=== PATIENT | male | born 1960 | race Caucasian/White ===

== ENCOUNTER 2019-01-11 12:56 | Emergency (ER) | payer MEDICARE ==
[~2019-01-11] VITALS: Ht 177.8 cm; Wt 88.9 kg
[~2019-01-11 12:56] MED LIST: ALLO300T OR; AMBI10TA OR; ASPI325T5 PO; ASPI81TA83 OR; BISA10SU PR; CELE40TA OR; COLC0.6T OR; FLUT1SPR2; FOLI800T OR; HYDR25TA6 OR; LISI20TA5 OR; LOPR50TA OR; METF1000 PO; NASONEX; NITR0.4S SL; OXYC1TAB23 OR; PLAV75TA2 OR; PRAV20TA2 OR; PRIL20CA PO; XANA0.5T OR
[2019-01-11 13:55] LABS: VENOUS BASE EXCESS 1.8 (-2.0-2.0); VENOUS HCO3 28.8 MEQ/L (23.0-27.0); VENOUS O2 SATURATION 47.2 % (60.0-80.0); VENOUS PARTIAL PRESSURE CO2 53.6 mmHg (38.0-50.0); VENOUS PARTIAL PRESSURE O2 23.5 mmHg (30.0-50.0); VENOUS PH 7.348 UNITS (7.330-7.430); VENOUS STANDARD HCO3 24.5 MEQ/L; VENOUS TOTAL CO2 30.4 MEQ/L (24.0-28.0)
[2019-01-11 14:11] LABS: BASO % 0.4 % (0.0-1.0); EOS # 0.2 10^3/uL (0.0-0.5); EOS % 1.5 % (0.0-3.0); HEMATOCRIT 46.5 % (42.0-52.0); HEMOGLOBIN 15.9 g/dl (13.5-17.5); LYMPH # 2.1 10^3/uL (1.5-5.0); LYMPH % 20.1 % (24.0-44.0); MEAN CORPUSCULAR HEMOGLOBIN 31.5 pg (27.0-33.0); MEAN CORPUSCULAR HGB CONC 34.2 g/dl (32.0-36.5); MEAN CORPUSCULAR VOLUME 92.1 fl (80.0-96.0); MONO # 0.8 10^3/uL (0.0-0.8); MONO % 7.6 % (0.0-5.0); NEUTROPHILS # 7.2 10^3/uL (1.5-8.5); NEUTROPHILS % 70.2 % (36.0-66.0); PLATELET COUNT, AUTOMATED 352 10^3/uL (150-450); RED BLOOD COUNT 5.05 10^6/uL (4.30-6.10); WHITE BLOOD COUNT 10.3 10^3/uL (4.0-10.0)
--- NOTE | 2019-01-11 14:22 | REP ---
Clinical: Generalized abdominal pain. Technique: Upright view of the chest with supine and upright views of the abdomen and pelvis. Findings: Frontal upright view of the chest demonstrates no acute cardiopulmonary process or free air below the diaphragm to suspect pneumoperitoneum. Supine and upright views of the abdomen and pelvis demonstrate nonspecific bowel gas pattern without obstruction or perforation. No organomegaly. No abnormal calcifications. Skeletal structures normal for age. Impression: Nonspecific bowel gas pattern. Electronically Signed by Sukhwinder Loredo MD 01/11/2019 02:13 P
[2019-01-11 14:28] LABS: ALBUMIN 3.7 GM/DL (3.2-5.2); ALT/SGPT 13 U/L (12-78); BILIRUBIN,DIRECT 0.1 MG/DL (0.0-0.2); BILIRUBIN,TOTAL 0.5 MG/DL (0.2-1.0); BLOOD UREA NITROGEN 6 MG/DL (7-18); CALCIUM LEVEL 9.3 MG/DL (8.5-10.1); CARBON DIOXIDE LEVEL 29 MEQ/L (21-32); CHLORIDE LEVEL 106 MEQ/L (98-107); CK-MB VALUE MASS 5.4 NG/ML (<3.6); CPK CREATINE PHOSPHOKINASE 81 U/L (39-308); CREATININE FOR GFR 0.78 MG/DL (0.70-1.30); GLOMERULAR FILTRATION RATE > 60.0 (>56); GLUCOSE, FASTING 139 MG/DL (70-100); LIPASE 58 U/L (73-393); MB/CK RELATIVE INDEX 6.67 (< OR =4); POTASSIUM SERUM 4.3 MEQ/L (3.5-5.1); SODIUM LEVEL 138 MEQ/L (136-145); TOTAL PROTEIN 6.7 GM/DL (6.4-8.2); TROPONIN I < 0.02 NG/ML (< 0.10)
[2019-01-11] MEDS ORDERED: KETOROLAC 30 MG/ML VIAL (J1885) IV ONE (15:30)
[2019-01-11] MEDS: GASTROGRAFIN SOLUTION 30ML PO SCH ×2 (15:38→16:21)
[2019-01-11] MEDS ORDERED: ACETAMINOPHEN TAB 650MG DOSE (2X325MG) PO ONE (16:00)
[2019-01-11] MEDS ORDERED: ISOVUE-370 76% 100ML VIAL (Q9967) As Ordered ONE (16:48)
--- NOTE | 2019-01-11 17:27 | REPVR ---
PROCEDURE INFORMATION: Exam: CT Abdomen And Pelvis With Contrast Exam date and time: 01/11/2019 5:01 PM Clinical history: 58 years old, male; Other: Wt loss; Additional info: 60lb weight loss, lower abdominal pain TECHNIQUE: Imaging protocol: Computed tomography of the abdomen and pelvis with intravenous contrast. Radiation optimization: All CT scans at this facility use at least one of these dose optimization techniques: automated exposure control; mA and/or kV adjustment per patient size (includes targeted exams where dose is matched to clinical indication); or iterative reconstruction. Contrast material: ISOVUE 370; Contrast volume: 100 ml; Contrast route: IV; COMPARISON: CT ABD PELVIS WITH CONTRAST 07/29/2012 11:05 AM FINDINGS: Lungs: Small tree in bud subpleural opacity right middle lobe. Small focus of peripheral airway disease left lower lobe. Minimal scarring left lower lobe. Liver: There is a diffuse decrease in hepatic parenchymal density, consistent with fatty infiltration. Small perfusional abnormality left lobe liver, likely transient. Gallbladder and bile ducts: Normal. No calcified stones. No ductal dilation. Pancreas: There is diffuse pancreatic atrophy. Spleen: Top normal splenic size. Adrenals: There is bilateral adrenal hyperplasia. There is a focal hypodense mass in the right adrenal gland measuring 1.6 x 1.4 cm., consistent in appearance and density with a benign adrenal adenoma. Kidneys and ureters: 1.8 x 2.8 cm left renal cyst. Stomach and bowel: Unremarkable. No obstruction. No mucosal thickening. Appendix: No evidence of appendicitis. Intraperitoneal space: Unremarkable. No free air. No significant fluid collection. Vasculature: The aorta demonstrates mild atherosclerotic calcification. Lymph nodes: Unremarkable. No enlarged lymph nodes. Bladder: Mild bladder wall thickening likely related to chronic bladder obstruction. Reproductive: The prostate gland demonstrates moderate hyperplasia. Bones/joints: Moderate central spinal stenosis L3-4 and mild central spinal stenosis L4-5. Soft tissues: Unremarkable. IMPRESSION: 1. There is a diffuse decrease in hepatic parenchymal density, consistent with fatty infiltration. 2. There is bilateral adrenal hyperplasia. 3. There is diffuse pancreatic atrophy. 4. Moderate prostatic hyperplasia. 5. There is a focal hypodense mass in the right adrenal gland measuring 1.6 x 1.4 cm., consistent in appearance and density with a benign adrenal adenoma. 6. 1.8 x 2.8 cm left renal cyst. Electronically signed by: Rei Watson On 01/11/2019 17:27:30 PM
[2019-01-11] MEDS ORDERED: FINA5TAB2 PO (18:00)
[2019-01-11 18:07] VITALS: BP 165/73
--- NOTE | 2019-01-11 22:44 | ECGEPIP ---
[facility] - ED Test Date: 2019-01-11 Pat Name: TAMIA PERDOMO Department: Room: - Gender: Male Pricing Lead: allan : 1960 Requested By: Miky Lim Order Number: [id number] Reading MD: Chantelle Bailey Measurements Intervals Xenia Rate: 59 P: 62 NE: 125 QRS: 58 QRSD: 127 T: 3 QT: 467 QTc: 463 Interpretive Statements SINUS BRADYCARDIA INFERIOR MYOCARDIAL INFARCTION, OF INDETERMINATE AGE WITH POSTERIOR EXTENSION ANTEROLATERAL MYOCARDIAL INFARCTION, OF INDETERMINATE AGE IVCD NO PRIOR Electronically Signed on 01-11-2019 22:44:25 EDT by Chantelle Bailey
== END 2019-01-11 18:14 | disposition home or self-care (01) ==
LOC: M ED 12:56
DX: N40.3 Nodular prostate with lower urinary tract symptoms (principal); N28.1 Cyst of kidney, acquired; E11.9 Type 2 diabetes mellitus without complications; J44.9 Chronic obstructive pulmonary disease, unspecified; I25.10 Atherosclerotic heart disease of native coronary artery without angina pectoris; I10 Essential (primary) hypertension; M10.9 Gout, unspecified; E78.5 Hyperlipidemia, unspecified; F33.9 Major depressive disorder, recurrent, unspecified; F17.210 Nicotine dependence, cigarettes, uncomplicated; Z79.84 Long term (current) use of oral hypoglycemic drugs; Z79.899 Other long term (current) drug therapy; Z95.1 Presence of aortocoronary bypass graft; Z87.448 Personal history of other diseases of urinary system
CPT/HCPCS: 74021; 74177; 80048; 80076; 81001; 82550; 82553; 82803; 83036; 83605; 83690; 84484; 85025; 93005; 93041; 99285; Q9963; Q9967

== ENCOUNTER → 2022-10-13 | Outpatient (REF) | payer MEDICARE, MEDICAID ==
[~2022-10-13] MED LIST changes: +FINA5TAB2 PO
[2022-10-13 14:07] LABS: HEMOGLOBIN A1c 10.4 % (4.0-6.0)
[2022-10-13 14:15] LABS: ALKALINE PHOSPHATASE 80 U/L (46-116); ALT/SGPT < 9 U/L (7.0-40); AST/SGOT 9 U/L (<34); BILIRUBIN,TOTAL 0.6 MG/DL (0.3-1.2); BLOOD UREA NITROGEN 10 MG/DL (9-23); CALCIUM LEVEL 8.9 MG/DL (8.3-10.6); CARBON DIOXIDE LEVEL 26 MMOL/L (20-31); CHLORIDE LEVEL 106 MMOL/L (98-107); CHOLESTEROL LEVEL 103 MG/DL (<200); CHOLESTEROL RISK RATIO 2.62 (<5); CREATININE FOR GFR 0.56 MG/DL (0.70-1.30); GLOMERULAR FILTRATION RATE > 60.0 (>49); GLUCOSE, FASTING 202 MG/DL (74-106); HDL CHOLESTEROL 39.3 MG/DL (>40); LDL CHOLESTEROL 49.1 MG/DL (<100); NON-HDL-C 63.7 MG/DL; POTASSIUM SERUM 4.1 MMOL/L (3.5-5.1); SODIUM LEVEL 144 MMOL/L (136-145); TOTAL PROTEIN 6.6 G/DL (5.7-8.2); TRIGLYCERIDES LEVEL 73 MG/DL (<150)
[2022-10-13 14:17] LABS: THYROID STIMULATING HORMONE 1.579 uIU/ML (0.55-4.78)
== END ==
LOC: M LAB REF 12:15
PROVIDERS: ATTEND Family Medicine Addiction Medicine
DX: E11.9 Type 2 diabetes mellitus without complications (principal)

== ENCOUNTER → 2023-01-08 | Outpatient (REF) | payer MEDICARE, MEDICAID ==
[2023-01-08 18:20] LABS: CREATININE, URINE 120.5 MG/DL; MAU/CREAT RATIO 16.5 MCG/MG (0.0-30.0)
[2023-01-08 18:57] LABS: ALBUMIN 3.5 G/DL (3.2-5.2); ALKALINE PHOSPHATASE 76 U/L (46-116); ALT/SGPT 19 U/L (7.0-40); AST/SGOT 16 U/L (<34); BILIRUBIN,TOTAL 0.6 MG/DL (0.3-1.2); BLOOD UREA NITROGEN 11 MG/DL (9-23); CALCIUM LEVEL 8.8 MG/DL (8.3-10.6); CARBON DIOXIDE LEVEL 26 MMOL/L (20-31); CHLORIDE LEVEL 105 MMOL/L (98-107); CHOLESTEROL LEVEL 101 MG/DL (<200); CHOLESTEROL RISK RATIO 3.02 (<5); CREATININE FOR GFR 0.61 MG/DL (0.70-1.30); GLOMERULAR FILTRATION RATE > 60.0 (>49); GLUCOSE, FASTING 246 MG/DL (74-106); HDL CHOLESTEROL 33.4 MG/DL (>40); LDL CHOLESTEROL 34.8 MG/DL (<100); NON-HDL-C 67.6 MG/DL; POTASSIUM SERUM 4.5 MMOL/L (3.5-5.1); SODIUM LEVEL 139 MMOL/L (136-145); THYROID STIMULATING HORMONE 1.547 uIU/ML (0.55-4.78); TOTAL PROTEIN 6.1 G/DL (5.7-8.2); TRIGLYCERIDES LEVEL 164 MG/DL (<150)
== END ==
LOC: M LAB REF 16:27
PROVIDERS: ATTEND Family Medicine Addiction Medicine
DX: E11.9 Type 2 diabetes mellitus without complications (principal)